=== PATIENT | male | born 1940 | race Caucasian/White ===

== ENCOUNTER → 2016-10-05 | Outpatient (CLI) | payer BC ==
[2016-10-05 12:42] LABS: ESTIMATED AVERAGE GLUCOSE 126 mg/dl; HA1C FLAG Normal (Normal)
[2016-10-05 12:44] LABS: BLOOD UREA NITROGEN 18 mg/dl (7-18); BUN/CREATININE RATIO 14.1 (10-20); CARBON DIOXIDE 29 mmol/L (21-32); CHLORIDE 105 mmol/L (98-107); GLUCOSE 107 mg/dl (70-99); POTASSIUM 3.9 mmol/L (3.5-5.1); SODIUM 140 mmol/L (136-145)
[2016-10-05 12:47] LABS: CHOLESTEROL 200 mg/dl (0-200); CHOLESTEROL/HDL RATIO 3.8; HDL CHOLESTEROL 53 mg/dl; TRIGLYCERIDES 107 mg/dl (0-150); VERY LOW DENSITY LIPOPROT CALC 21 mg/dl
== END | disposition home or self-care (01) ==
LOC: C.LABSPEC 11:55
PROVIDERS: ATTEND Internal Medicine
DX: E78.5 Hyperlipidemia, unspecified (principal); E11.9 Type 2 diabetes mellitus without complications

== ENCOUNTER → 2016-12-18 | Outpatient (CLI) | payer BC ==
[2016-12-18 13:22] LABS: BLOOD UREA NITROGEN 17 mg/dl (7-18); BUN/CREATININE RATIO 12.9 (10-20); CALCIUM 9.2 mg/dl (8.5-10.1); CARBON DIOXIDE 31 mmol/L (21-32); CHLORIDE 102 mmol/L (98-107); GLUCOSE 86 mg/dl (70-99); POTASSIUM 3.8 mmol/L (3.5-5.1); SODIUM 139 mmol/L (136-145)
[2016-12-18 13:25] LABS: CHOLESTEROL 201 mg/dl (0-200); CHOLESTEROL/HDL RATIO 3.7; HDL CHOLESTEROL 55 mg/dl; TRIGLYCERIDES 95 mg/dl (0-150); VERY LOW DENSITY LIPOPROT CALC 19 mg/dl
[2016-12-18 13:29] LABS: ESTIMATED AVERAGE GLUCOSE 128 mg/dl; HA1C FLAG Normal (Normal)
== END | disposition home or self-care (01) ==
LOC: C.LABSPEC 12:20
PROVIDERS: ATTEND Internal Medicine
DX: Z00.00 Encounter for general adult medical examination without abnormal findings (principal); E11.9 Type 2 diabetes mellitus without complications; E78.5 Hyperlipidemia, unspecified

== ENCOUNTER → 2016-12-31 | Outpatient (CLI) | payer BC | END | disposition home or self-care (01) | LOC: C.LABSPEC 12:36 | PROVIDERS: ATTEND Internal Medicine | DX: Z12.11 Encounter for screening for malignant neoplasm of colon (principal) ==

== ENCOUNTER → 2017-08-27 | Outpatient (CLI) | payer BC ==
[2017-08-27 13:52] LABS: HEMOGLOBIN A1C 6.2 % (4.5-5.6)
[2017-08-27 14:31] LABS: BLOOD UREA NITROGEN 20 mg/dl (7-18); CALCIUM 9.1 mg/dl (8.5-10.1); CARBON DIOXIDE 31 mmol/L (21-32); CHOLESTEROL 187 mg/dl (0-200); CREATININE 1.28 mg/dl (0.60-1.40); GLUCOSE 112 mg/dl (70-99); POTASSIUM 3.9 mmol/L (3.5-5.1); SODIUM 138 mmol/L (136-145)
[2017-08-27 14:34] LABS: LDL CHOLESTEROL (DIRECT) 130 mg/dl
== END | disposition home or self-care (01) ==
LOC: C.LABSPEC 12:36
PROVIDERS: ATTEND Internal Medicine
DX: E78.5 Hyperlipidemia, unspecified (principal); E11.9 Type 2 diabetes mellitus without complications

== ENCOUNTER → 2017-12-27 | Outpatient (CLI) | payer BC ==
[~2017-12-27] MED LIST: DXY100 PO; LPR25 PO
[2017-12-27 17:07] LABS: ALBUMIN 2.9 gm/dl (3.4-5.0); ALKALINE PHOSPHATASE 122 U/L (45-117); ALT/SGPT 307 U/L (12-78); AST/SGOT 50 U/L (15-37); BLOOD UREA NITROGEN 16 mg/dl (7-18); CALCIUM 9.1 mg/dl (8.5-10.1); CARBON DIOXIDE 27 mmol/L (21-32); CREATININE 1.14 mg/dl (0.60-1.40); GLUCOSE 148 mg/dl (70-99); POTASSIUM 4.5 mmol/L (3.5-5.1); SODIUM 136 mmol/L (136-145)
== END | disposition home or self-care (01) ==
LOC: C.LAB 16:00
PROVIDERS: ATTEND Family Medicine
DX: E87.1 Hypo-osmolality and hyponatremia (principal); R79.89 Other specified abnormal findings of blood chemistry

== ENCOUNTER → 2017-12-31 | Outpatient (CLI) | payer BC ==
[2017-12-31 18:23] LABS: ALBUMIN 3.2 gm/dl (3.4-5.0); TOTAL PROTEIN 7.3 gm/dl (6.4-8.2)
--- NOTE | 2018-01-09 11:41 | CODING QUERY MEDICAL NECESSITY ---
CQTREATMENT RENDERED WITHOUT A DIAGNOSIS To promote full compliance with coding requirements relating to patient care, physician participation is requested in all cases of medical biller coder uncertainty. Please assist us with providing a diagnosis/symptom for the test(s) below: A diagnosis/symptom was not documented on your Order. A valid diagnosis/symptom is required to bill all insurances. Please remember that we are unable to code a diagnosis of rule out, probable, possible, questionable, or suspected. Tests that require a diagnosis: DOS 12/31/17 LIVER PROFILE TESTING Provider Signature: Date: Thank you Kristi Eisenberg [employer] Once completed, please kindly fax back to [phone] For questions please call [phone]
== END | disposition home or self-care (01) ==
LOC: C.LABSPEC 17:26
PROVIDERS: ATTEND Internal Medicine
DX: R79.89 Other specified abnormal findings of blood chemistry (principal); R94.5 Abnormal results of liver function studies

== ENCOUNTER 2021-08-09 17:11 | Inpatient (IN) ==
--- NOTE | 2021-08-09 17:23 | Emergency Department Note ---
Impression & Plan Atrial fibrillation with rapid ventricular response, Symptomatic bradycardia ED Provider Note NAME: BRIGID KIRK AGE: 81 SEX: M : 1940 ARRIVES VIA: Walk-In INFORMANT: Patient, ED PROVIDER(S): Soy Castellanos MD Chief Complaint: Palpitations HPI: Patient presents due to concern for palpitations and states that he does wear an apple watch was notified and noted that his heart rate was elevated today. The patient does have a known history of A. fib and does follow with Dr. Olvera. Patient denies any chest pain shortness of breath nausea vomiting or diarrhea. Patient states that he does have a history of taking thyroid replacement hormone. Patient denies any alcohol tobacco or drug use. Patient states that he did take extra dose of his metoprolol and took 2 of his flecainide as this is what had Dr. Olvera recommended when he does have an increased heart rate. Patient denies any abdominal pain. Patient denies any leg swelling. ROS: See HPI for pertinent positives and negatives. A total of 10 systems were reviewed and otherwise negative. Past medical history: See below Surgical history: See below Social history: See below Physical Exam: GENERAL: NAD, wearing glasses, wearing a mask, non-toxic. EYE EXAM: Normal conjunctiva. PERRL, no anisocoria and EOM's grossly intact w/o pain. NECK: Supple, no nuchal rigidity, no adenopathy, non-tender. No signs of meningismus. LUNGS: Clear to auscultation. Normal chest wall mechanics. HEART: Tachycardic and regular, no MRG. ABDOMEN: Abdomen soft, non-tender, normo-active bowel sounds, no masses, no rebound or guarding. BACK: No CVA TTP. SKIN: No rashes and no bruising. UPPER EXTREMITIES: Upper extremities are grossly normal. LOWER EXTREMITIES: Grossly normal, no edema. NEURO EXAM: A&O x3, cranial nerves II-XII grossly intact, normal speech, moves all 4 extremities on command w/o issue. Differential diagnoses: Premature contractions, electrolyte abnormality, cardiac dysrhythmia, thyroid dysfunction, pulmonary embolism, infection, gastrointestinal, as well as other pathologies. Course: Patient was seen and evaluated the bedside. Full history physical exam was performed. EKG interpreted by me Gilbert orozco RVR, rate of 137, wide QRS, right axis deviation. Tachycardic and fairly regular with a wide complex, rate of 180, wide QRS, possible right axis. Post Cardizem A. fib, rate of 61, wide QRS, right axis deviation, no obvious ST changes. Imaging Studies: See Below Cardiac monitoring: An order was placed for continuous cardiac monitoring. The monitor shows a rate of 162 with regular rhythm. MDM: The patient did present due to concern for tachycardia. The patient was placed in a large resuscitation room and was evaluated and treated. The patient did have improvement with diltiazem and small amount of IV fluids. Patient had normal white count H&H and platelet count. The patient's kidney function with a creat of 1.45. Patient's LFTs unremarkable. TSH is normal. The patient was doing quite well. The patient did eventually develop some lightheadedness and was noted to be increasingly bradycardic to where he was showing decreasing responsiveness. The patient was awake but the patient was noted to be bradycardic and hypotensive. The patient was given 1 mg of atropine, IV fluids and a gram of calcium. The patient had virtually immediate improvement. The patient upon being increasingly responsive denies any chest pains or shortness of breath. I do believe that the patient will need to be continued to be monitored. I did offer to speak with the patient's family but he declined. Of note the patient's bradycardia may be multifactorial as the patient did take an extra dose of his metoprolol today and also took two of his flecainide's which he does not take regularly. The patient had been ordered 15 mg of Cardizem but a dummy order had populated in addition to my order - per nursing - and the patient had received 25 mg of Cardizem instead of my order of 15 mg. Nursing did report this to the charge nurse and an incident report was filed. The patient did not have his worsening hypotension and bradycardia until well after an hour after administration of the Cardizem. Critical Care: I have personally spent 55 minutes of critical care time in direct management of this patient. This includes bedside care, interpretation of diagnostic studies, and testing, discussion with consultants, patient, and family members, and other require inpatient management activities. This 55 minutes is in excess of all separately billable procedures. Past Med/Surg History Medical History (Updated 08/09/21 @ 22:16 by Soy Castellanos MD) Atrial fibrillation with RVR Atrial flutter with rapid ventricular response Atrial flutter, paroxysmal CHF (congestive heart failure) Coronary artery calcification Elevated troponin Lyme disease Mitral regurgitation Nocturnal hypoxemia NSTEMI (non-ST elevated myocardial infarction) Paroxysmal atrial fibrillation Pre-diabetes Surgical History History of cataract surgery History of hernia repair History of repair of rotator cuff Family History Brother Diabetes Kidney stones Mother Diabetes Hypertension Other Myocardial infarction Social History Smoking Status: Never smoker Age Started Using Tobacco: 20; Years Smoked: 5; Second Hand Exposure: No; Do You Dip or Chew Tobacco: No; Tobacco Cessation Education Requested by Patient: No Hx Alcohol Use: No Hx Substance Use: No Preferred Language: Zambian Communication Ability: Effective 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 Beliefs That Will Affect Care: None marital status: Current Living Situation: Alone current occupational status: retired Other Information That Helps Us Care for You: No Feels Safe at Home: Yes Safety Concerns: Feels Safe At This Time Assistive Devices: CPAP Assistive Devices Comment: CPAP at night Allergies Allergies Allergy/AdvReac Type Severity Reaction Status Date / Time No Known Allergies Allergy Verified 08/09/21 18:05 Home Meds Home Medications Medication Instructions Recorded Confirmed cinnamon bark 500 mg capsule 500 mg PO QAM 08/25/18 08/09/21 (Cinnamon) multivitamin (Multiple Vitamins) 1 tab PO DAILY 01/27/19 08/09/21 flecainide 150 mg tablet 300 mg PO ONCE PRN 08/09/21 08/09/21 Previous Rx's Medication Instructions Recorded metoprolol tartrate 25 mg tablet 25 mg PO BID #180 tab 02/04/19 apixaban 5 mg tablet 5 mg PO BID #180 tab 01/19/21 Results & Data (ED) Vital Signs Vital Signs - 24 hr 08/09/21 17:13 08/09/21 17:24 08/09/21 17:30 Temperature 36.9 C Temperature Source Temporal Artery Scan Pulse Rate 201 H 192 H 163 H Pulse Rate [Finger] Pulse Rate from SpO2 Sensor 192 H 163 H Respiratory Rate 22 19 23 Respiratory Effort / Characteristics Non-Labored Spontaneous Respiratory Depth Normal Blood Pressure 111/81 169/137 H Blood Pressure [Left Arm] Blood Pressure Mean 91 147 Blood Pressure Mean [Left Arm] Blood Pressure Position [Left Arm] Pulse Oximetry 98 100 99 Oxygen Delivery Method Room Air Oxygen Flow Rate Sepsis Recent Fever Within 48 Hours No Sepsis New/Unexplained Change in Mental Status N/A Sepsis Action Taken by Nursing No Action Required 08/09/21 17:44 08/09/21 17:45 08/09/21 17:52 Temperature Temperature Source Pulse Rate 150 H 153 H 55 L Pulse Rate [Finger] Pulse Rate from SpO2 Sensor 151 H 152 H 50 L Respiratory Rate 27 H 15 24 Respiratory Effort / Characteristics Respiratory Depth Blood Pressure 147/101 H 86/48 L Blood Pressure [Left Arm] Blood Pressure Mean 116 60 Blood Pressure Mean [Left Arm] Blood Pressure Position [Left Arm] Pulse Oximetry 98 99 96 Oxygen Delivery Method Oxygen Flow Rate Sepsis Recent Fever Within 48 Hours Sepsis New/Unexplained Change in Mental Status Sepsis Action Taken by Nursing 08/09/21 17:53 08/09/21 18:00 08/09/21 18:06 Temperature Temperature Source Pulse Rate 55 L 62 61 Pulse Rate [Finger] Pulse Rate from SpO2 Sensor 49 L 35 L 43 L Respiratory Rate 21 18 21 Respiratory Effort / Characteristics Respiratory Depth Blood Pressure 93/49 L 94/44 L 94/44 L Blood Pressure [Left Arm] Blood Pressure Mean 63 60 60 Blood Pressure Mean [Left Arm] Blood Pressure Position [Left Arm] Pulse Oximetry 94 94 94 Oxygen Delivery Method Room Air Oxygen Flow Rate 0 Sepsis Recent Fever Within 48 Hours Sepsis New/Unexplained Change in Mental Status Sepsis Action Taken by Nursing 08/09/21 18:15 08/09/21 18:16 08/09/21 18:30 Temperature Temperature Source Pulse Rate 54 L 57 L 58 L Pulse Rate [Finger] Pulse Rate from SpO2 Sensor 56 L 58 L 49 L Respiratory Rate 17 22 16 Respiratory Effort / Characteristics Respiratory Depth Blood Pressure 84/46 L 94/47 L Blood Pressure [Left Arm] Blood Pressure Mean 58 62 Blood Pressure Mean [Left Arm] Blood Pressure Position [Left Arm] Pulse Oximetry 100 98 97 Oxygen Delivery Method Oxygen Flow Rate Sepsis Recent Fever Within 48 Hours Sepsis New/Unexplained Change in Mental Status Sepsis Action Taken by Nursing 08/09/21 18:45 08/09/21 18:50 08/09/21 19:00 Temperature Temperature Source Pulse Rate 36 L 41 L 67 Pulse Rate [Finger] Pulse Rate from SpO2 Sensor 41 L Respiratory Rate 16 19 23 Respiratory Effort / Characteristics Respiratory Depth Blood Pressure 60/36 L 93/52 L 107/58 L Blood Pressure [Left Arm] Blood Pressure Mean 44 65 74 Blood Pressure Mean [Left Arm] Blood Pressure Position [Left Arm] Pulse Oximetry 97 Oxygen Delivery Method Oxygen Flow Rate Sepsis Recent Fever Within 48 Hours Sepsis New/Unexplained Change in Mental Status Sepsis Action Taken by Nursing 08/09/21 19:15 08/09/21 19:30 08/09/21 19:45 Temperature Temperature Source Pulse Rate Pulse Rate [Finger] 83 84 84 Pulse Rate from SpO2 Sensor Respiratory Rate 18 Respiratory Effort / Characteristics Respiratory Depth Blood Pressure Blood Pressure [Left Arm] 128/72 112/63 139/72 Blood Pressure Mean Blood Pressure Mean [Left Arm] 90 79 94 Blood Pressure Position [Left Arm] Sitting Pulse Oximetry 95 98 98 Oxygen Delivery Method Room Air Room Air Room Air Oxygen Flow Rate Sepsis Recent Fever Within 48 Hours Sepsis New/Unexplained Change in Mental Status Sepsis Action Taken by Nursing 08/09/21 20:00 Temperature Temperature Source Pulse Rate Pulse Rate [Finger] 80 Pulse Rate from SpO2 Sensor Respiratory Rate Respiratory Effort / Characteristics Respiratory Depth Blood Pressure Blood Pressure [Left Arm] 136/64 Blood Pressure Mean Blood Pressure Mean [Left Arm] 88 Blood Pressure Position [Left Arm] Pulse Oximetry 98 Oxygen Delivery Method Room Air Oxygen Flow Rate Sepsis Recent Fever Within 48 Hours Sepsis New/Unexplained Change in Mental Status Sepsis Action Taken by Custodial Medications Current Medication List: was personally reviewed by me Laboratory Data Attestation: I reviewed the patient's lab results. Result diagrams: 08/09/21 17:22 08/09/21 17:22 Lab Results 08/09/21 08/09/21 08/09/21 Range/Units 17:22 17:22 17:22 WBC 6.72 (4.8-10.8) K/uL RBC 4.75 (4.7-6.1) M/uL Hgb 14.5 (14.0-18.0) g/dL Hct 42.5 (42-52) % MCV 89.5 (80-100) fL MCH 30.5 (25-34) pg MCHC 34.1 (32-36) g/dL RDW Std Deviation 43.6 (36.4-46.3) fL RDW Coeff of Tae 13.3 (11.5-14.5) % Plt Count 265 (130-400) K/uL MPV 9.6 (7.4-10.4) fL Immature Gran % (Auto) 0.1 % Neut % (Auto) 46.6 % Lymph % (Auto) 42.7 % [place] % (Auto) 7.4 % Eos % (Auto) 2.8 % Baso % (Auto) 0.4 % Neut # (Auto) 3.12 (1.4-6.5) K/uL Lymph # (Auto) 2.87 (1.2-3.4) K/uL [place] # (Auto) 0.50 (0.11-0.59) K/uL Eos # (Auto) 0.19 (0-0.5) K/uL Baso # (Auto) 0.03 (0-0.2) K/uL Immature Gran # (Auto) 0.01 (0.00-0.02) K/uL Sodium 134 L (136-145) mmol/L Potassium 3.8 (3.5-5.1) mmol/L Chloride 99 (98-107) mmol/L Carbon Dioxide 25 (21-32) mmol/L Anion Gap 10 (3-11) BUN 21 (6-23) mg/dl Creatinine 1.45 H (0.6-1.4) mg/dl Est Cr Clr Drug Dosing Not Reportable Est GFR ( Amer) 52.0 ml/min Est GFR (Non-Af Amer) 44.8 ml/min BUN/Creatinine Ratio 14.5 (10-20) Glucose 161 H (70-99(Fasting)) mg/dl Calcium 9.3 (8.5-10.1) mg/dl Phosphorus 4.2 (2.5-4.9) mg/dl Magnesium 2.1 (1.7-2.4) mg/dl Total Bilirubin 0.7 (0.2-1.0) mg/dl AST 40 H (13-39) U/L ALT 43 (7-52) U/L Alkaline Phosphatase 55 (34-104) U/L Troponin I < 0.03 (0-0.04) ng/ml Total Protein 7.6 (6.0-8.3) gm/dl Albumin 4.6 (3.4-5.0) gm/dl Globulin 3.0 (2.5-4.0) gm/dl Albumin/Globulin Ratio 1.5 (0.9-2) TSH 1.898 (0.300-4.500) uIu/ml SARS-CoV-2, RNA, NAAT (NEGATIVE) 08/09/21 Range/Units 19:31 WBC (4.8-10.8) K/uL RBC (4.7-6.1) M/uL Hgb (14.0-18.0) g/dL Hct (42-52) % MCV (80-100) fL MCH (25-34) pg MCHC (32-36) g/dL RDW Std Deviation (36.4-46.3) fL RDW Coeff of Tae (11.5-14.5) % Plt Count (130-400) K/uL MPV (7.4-10.4) fL Immature Gran % (Auto) % Neut % (Auto) % Lymph % (Auto) % [place] % (Auto) % Eos % (Auto) % Baso % (Auto) % Neut # (Auto) (1.4-6.5) K/uL Lymph # (Auto) (1.2-3.4) K/uL [place] # (Auto) (0.11-0.59) K/uL Eos # (Auto) (0-0.5) K/uL Baso # (Auto) (0-0.2) K/uL Immature Gran # (Auto) (0.00-0.02) K/uL Sodium (136-145) mmol/L Potassium (3.5-5.1) mmol/L Chloride (98-107) mmol/L Carbon Dioxide (21-32) mmol/L Anion Gap (3-11) BUN (6-23) mg/dl Creatinine (0.6-1.4) mg/dl Est Cr Clr Drug Dosing Est GFR ( Amer) ml/min Est GFR (Non-Af Amer) ml/min BUN/Creatinine Ratio (10-20) Glucose (70-99(Fasting)) mg/dl Calcium (8.5-10.1) mg/dl Phosphorus (2.5-4.9) mg/dl Magnesium (1.7-2.4) mg/dl Total Bilirubin (0.2-1.0) mg/dl AST (13-39) U/L ALT (7-52) U/L Alkaline Phosphatase (34-104) U/L Troponin I (0-0.04) ng/ml Total Protein (6.0-8.3) gm/dl Albumin (3.4-5.0) gm/dl Globulin (2.5-4.0) gm/dl Albumin/Globulin Ratio (0.9-2) TSH (0.300-4.500) uIu/ml SARS-CoV-2, RNA, NAAT NEGATIVE (NEGATIVE) Administered Medications Discontinued Medications Adenosine (Adenosine Iv Soln 3 Mg/Ml 2 Ml Vial) 6 mg IV NOW STA Stop: 08/09/21 17:32 Last Admin: 08/09/21 18:56 Dose: Not Given Documented by: [id number] Atropine Sulfate (Atropine So4 1 Mg/Ml 1ml Vial) Confirm Administered Dose 1 mg .ROUTE .STK-MED ONE Stop: 08/09/21 18:49 Last Admin: 08/09/21 18:59 Dose: Not Given Documented by: [id number] Atropine Sulfate (Atropine Sulfate 0.1 Mg/Ml 10ml Syr) 1 mg IV NOW STA Stop: 08/09/21 18:50 Last Admin: 08/09/21 18:55 Dose: 1 mg Documented by: [id number] Diltiazem HCl (Diltiazem Hcl 5 Mg/Ml 5 Ml Vial) 15 mg IV NOW STA Stop: 08/09/21 17:38 Last Admin: 08/09/21 17:52 Dose: Not Given Documented by: [id number] Diltiazem HCl (Diltiazem Hcl 5 Mg/Ml 5 Ml Vial) Confirm Administered Dose 25 mg IV .STK-MED ONE Stop: 08/09/21 17:42 Last Admin: 08/09/21 17:42 Dose: 25 mg Documented by: [id number] Cosigned by: [id number] Sodium Chloride (Nss) 500 mls @ 999 mls/hr IV .Q31M STA Stop: 08/09/21 18:01 Last Infusion: 08/09/21 18:07 Dose: 0 mls/hr Documented by: [id number] Admin: 08/09/21 17:51 Dose: 999 mls/hr Documented by: [id number] Calcium Gluconate () 1,000 mg in 60 mls @ 240 mls/hr IV NOW STA Stop: 08/09/21 19:03 Last Infusion: 08/09/21 19:13 Dose: 0 mls/hr Documented by: [id number] Admin: 08/09/21 18:58 Dose: 240 mls/hr Documented by: [id number] Sodium Chloride (Nss 1000ml) 1,000 mls @ 999 mls/hr IV .Q1H1M ONE Stop: 08/09/21 19:49 Last Infusion: 08/09/21 19:57 Dose: 0 mls/hr Documented by: [id number] Admin: 08/09/21 18:56 Dose: 999 mls/hr Documented by: [id number] Potassium Chloride (Potassium Chloride Crtab 20 Meq Tabcr) 20 meq PO NOW STA Stop: 08/09/21 20:10 Last Admin: 08/09/21 20:19 Dose: 20 meq Documented by: [id number] Discharge Plan Visit Data Chief Complaint: Arrhythmia/Palpitations Stated Complaint: TACHYCARDIA, SOB ED Provider: Soy Castellanos Discharge Problem: Atrial fibrillation with rapid ventricular response, Symptomatic bradycardia Patient Disposition: Admitted As Inpatient Discharge Instructions Interventions: ED Discharge Assessment Last Done: 08/09/21 21:10
[2021-08-09] MEDS ORDERED: ADENOSINE IV SOLN 3 MG/ML 2 ML VIAL IV STA (17:31)
[2021-08-09] MEDS ORDERED: SODIUM CHLORIDE 0.9% 500 ML IV STA (17:31)
[2021-08-09] MEDS ORDERED: dilTIAZem HCl 5 MG/ML 5 ML VIAL IV STA (17:37)
[2021-08-09 17:41] LABS: Basophils # (auto) 0.03 K/uL (0-0.2); Basophils % (auto) 0.4 %; Eosinophils # (auto) 0.19 K/uL (0-0.5); Eosinophils % (auto) 2.8 %; Hematocrit (blood only) 42.5 % (42-52); Hemoglobin 14.5 g/dL (14.0-18.0); Immature Granulocytes # (auto) 0.01 K/uL (0.00-0.02); Immature Granulocytes % (auto) 0.1 %; Lymphocytes # (auto) 2.87 K/uL (1.2-3.4); Lymphocytes % (auto) 42.7 %; Mean Corpuscular Hemoglobin 30.5 pg (25-34); Mean Corpuscular Hgb Conc 34.1 g/dL (32-36); Mean Corpuscular Volume 89.5 fL (80-100); Mean Platelet Volume 9.6 fL (7.4-10.4); Monocytes % (auto) 7.4 %; Neutrophils # (auto) 3.12 K/uL (1.4-6.5); Neutrophils % (auto) 46.6 %; Platelet Count 265 K/uL (130-400); RDW Coefficient of Variation 13.3 % (11.5-14.5); RDW Standard Deviation 43.6 fL (36.4-46.3); Red Blood Count 4.75 M/uL (4.7-6.1); White Blood Count 6.72 K/uL (4.8-10.8)
[2021-08-09] MEDS ORDERED: dilTIAZem HCl 5 MG/ML 5 ML VIAL IV ONE (17:41)
[2021-08-09 18:12] LABS: Alanine Aminotransferase 43 U/L (7-52); Albumin Globulin Ratio 1.5 (0.9-2); Albumin Level 4.6 gm/dl (3.4-5.0); Alkaline Phosphatase 55 U/L (34-104); Anion Gap 10 (3-11); Aspartate Aminotransferase 40 U/L (13-39); BUN Creatinine Ratio 14.5 (10-20); Bilirubin,Total 0.7 mg/dl (0.2-1.0); Blood Urea Nitrogen 21 mg/dl (6-23); Calcium 9.3 mg/dl (8.5-10.1); Carbon Dioxide 25 mmol/L (21-32); Chloride 99 mmol/L (98-107); Est GFR (Non-African American) 44.8 ml/min; Glucose 161 mg/dl (70-99(Fasting)); Magnesium 2.1 mg/dl (1.7-2.4); Phosphorus 4.2 mg/dl (2.5-4.9); Potassium 3.8 mmol/L (3.5-5.1); Sodium 134 mmol/L (136-145); Total Protein 7.6 gm/dl (6.0-8.3)
[2021-08-09] MEDS ORDERED: ATROPINE SO4 1 MG/ML 1ML VIAL ONE (18:48)
[2021-08-09] MEDS ORDERED: CALCIUM GLUCONATE 1,000 MG/60 ML BAG IV STA (18:49)
[2021-08-09] MEDS ORDERED: SODIUM CHLORIDE 0.9% 1000ML 1,000 ML IV ONE (18:49)
[2021-08-09] MEDS ORDERED: ATROPINE SULFATE 0.1 MG/ML 10ML SYR IV STA (18:49)
[2021-08-09 19:19] LABS: Troponin I < 0.03 ng/ml (0-0.04)
--- NOTE | 2021-08-09 19:19 | History & Physical Report ---
Date of Service August 09, 2021 Assessment & Plan (1) Atrial fibrillation: Plan: -Admit to PCU. -Asymptomatic, Apple Watch indicated HR in 100-120s at home, he took his metoprolol and flecainide as he was told to by Dr. Olvera when he has increased HR, however this did not slow his rate. HR was recorded at 201 on presentation to ED, down to 150s before medication in ED. The reason he went into afibb in the first place is unclear, pt feels well and states he is adequately hydrated, and there are no indications of an underlying infection however his creatinine is increased, pt may be dehydrated or may have underlying UTI or prostatitis. He is without urinary sx, but a UA with reflex cx was ordered. Also bladder scanning pt to assess for retention that could have sent pt into afibb. -Will continue Eliquis, holding metoprolol for now as patient has received that prior to presentation, as well as Cardizem 25mg IV which brought his HR to 30s and SBP 80-90s -K+ was 3.4, will gently replete with 20 mEq KCl in setting of arrhythmia. -Last echo was in April 2021--> LV size and function normal, mild LVH, no diastolic dysfunction to indicate elevated LA pressure or CHF, LA mild elevated (3.1 cm), trace mitral regurg. Mild aortic root dilation. -Cardiology consulted, patient follows with Dr. Olvera, appreciate their recommendations. (2) Creatinine elevation: Plan: -Cr 1.45 today, Cr on labs from 07/27 was 1.15. -Patient states he is not dehydrated, without urinary symptoms. We will bladder scan patient, also get UA to assess for underlying UTI/prostatitis whihc may be cause of bump in Cr as well as cause of afibb. -Received 1500 cc NS IVF so far. Will hold off on additional fluids for now, encourage PO intake. -Repeat BMP in AM. (3) Elevated glucose: Plan: -Without a diagnosis of diabetes. -Will order BGMs ACHS to assess if there is a need for sliding scale insulin while inpatient. (4) Cardiomyopathy: Plan: -Per Dr. Olvera's note from 02/21/21, he previously had reduced LV systolic function.This returned to normal on an echocardiogram dated 02/2018. (5) Moderate obstructive sleep apnea: Plan: -Had previously been using a CPAP that has been recalled. Does not use one currently. Plan: -Admitted to PCU. -SCDs and Eliquis for DVT ppx. -Full Code. History of Present Illness Chief Complaint: arrhythmia Primary Care Provider: Rachid Morales MD Patient is an 81 y/o male with a PMH of paroxysmal afibb and JARON who presents today with concerns for increased HR. Patient wear an apple watch and noticed his HR was 106 at one point. He was not immediately concerned, continued with his routine of 90 minutes of yoga, however after he finished noticed his HR in the 120s. He monitors his HR via watch closely it seems, he states his HR rarely goes above 100 even with exercise. As instructed to do so by Dr. Olvera when his HR is elevatd, he took his metoprolol and flecainide without cessation of tachycardia. He did not notice palpitations at any point and says he felt otherwise fine, no fever/chills, fatigue, chest pain, SOB, cough, nausea, vomiting, abdominal pain, diarrhea, melena, hematochezia, dysuria or increased urinary frequency, but drove himself to the [facility] for further evaluation. During check in, his HR was recorded at 201, during ED evaluation it was recorded to be in the 150s. He was given 25 mg Cardizem, shortly after his HR dropped to 40-50s, BP from 17/101 to 80s/40s. He then receievd 1 mg atropine as well as calcium gluconate and a total of 1.5 L NS IVF. Hospitalist service was called for further evaluation and admission. At the time of my exam, pt has a HR in 80s, SBP in 140s. Allergies Allergy/AdvReac Type Severity Reaction Status Date / Time No Known Allergies Allergy Verified 08/09/21 18:05 Home Medications Medication Instructions Recorded Confirmed Type cinnamon bark 500 mg capsule 500 mg PO QAM 08/25/18 08/09/21 History (Cinnamon) multivitamin (Multiple Vitamins) 1 tab PO DAILY 01/27/19 08/09/21 History metoprolol tartrate 25 mg tablet 25 mg PO BID #180 tab 02/04/19 08/09/21 Rx apixaban 5 mg tablet 5 mg PO BID #180 tab 01/19/21 08/09/21 Rx flecainide 150 mg tablet 300 mg PO ONCE PRN 08/09/21 08/09/21 History Past Med/Surg History Medical History (Updated 08/09/21 @ 22:16 by Soy Castellanos MD) Atrial fibrillation with RVR Atrial flutter with rapid ventricular response Atrial flutter, paroxysmal CHF (congestive heart failure) Coronary artery calcification Elevated troponin Lyme disease Mitral regurgitation Nocturnal hypoxemia NSTEMI (non-ST elevated myocardial infarction) Paroxysmal atrial fibrillation Pre-diabetes Surgical History History of cataract surgery History of hernia repair History of repair of rotator cuff Family History Brother Diabetes Kidney stones Mother Diabetes Hypertension Other Myocardial infarction Social History Smoking Status: Never smoker Age Started Using Tobacco: 20; Years Smoked: 5; Second Hand Exposure: No; Hx Alcohol Use: No Hx Substance Use: No Preferred Language: Moroccan Communication Ability: Effective 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 Beliefs That Will Affect Care: None marital status: Current Living Situation: Alone current occupational status: retired How many Children do You have: 2 Feels Safe at Home: Yes Assistive Devices: None and CPAP Review of Systems Review of Systems: Review of systems: Constitutional: Developed chills during ED evakuation; previously states he's had no fever, sweats or chills Eyes: No diplopia, no worsening or blurred vision ENT: normal hearing, no trouble swallowing Respiratory: Complains of a dry mouth; No cough, sputum, dyspnea at rest or on exertion Cardiovascular: No chest pain, tightness or palpitations Abdomen: No pain, nausea, vomiting, diarrhea or constipation Musculoskeletal: No joint pain, calf pain, swelling Neurologic: No weakness, numbness/tingling, or balance problems Psychiatric: No anxiety or depression Skin: No rash or itch Physical Exam Physical Exam: General: awake, alert, no apparent distress Head: Normocephalic, atraumatic ENT: PERRL, EOMI, no pharyngeal exudate, mucous membranes moist Chest: Clear to auscultation, on room air, no adventitious breath sounds Cardiac: Regular rate and rhythm, no murmur, no JVD, normal peripheral pulses, good capillary refill Abdominal: NABS x 4 quadrants, soft, nontender to palpation, no rebound, guarding or tenderness Extremities: Normal inspection, no peripheral edema or erythema, calfs nontender to palpation Psych: Normal mood and affect Neuro: AAO x 3, strength intact bilaterally and rated 5/5, no motor deficits, speech is clear, no peripheral sensory deficits Skin: no rash or erythema Results & Data Results & Data ([facility]) Vital Signs (Past 12 Hours) Vital Signs Temp Pulse Resp BP Pulse Ox 08/09/21 19:00 67 23 107/58 L 08/09/21 18:50 41 L 19 93/52 L 08/09/21 18:45 36 L 16 60/36 L 97 08/09/21 18:30 58 L 16 94/47 L 97 08/09/21 18:16 57 L 22 84/46 L 98 08/09/21 18:15 54 L 17 100 08/09/21 18:06 61 21 94/44 L 94 08/09/21 18:00 62 18 94/44 L 94 08/09/21 17:53 55 L 21 93/49 L 94 08/09/21 17:52 55 L 24 86/48 L 96 08/09/21 17:45 153 H 15 99 08/09/21 17:44 150 H 27 H 147/101 H 98 08/09/21 17:30 163 H 23 169/137 H 99 08/09/21 17:24 192 H 19 100 08/09/21 17:13 36.9 C 201 H 22 111/81 98 Laboratory Results Abnormal lab results 08/09/21 Range/Units 17:22 Sodium 134 L (136-145) mmol/L Creatinine 1.45 H (0.6-1.4) mg/dl Glucose 161 H (70-99(Fasting)) mg/dl AST 40 H (13-39) U/L Code Status & VTE Plan Code Status Full Code. VTE Prophylaxis Plan VTE Prophylaxis will be ordered: Yes Supervising Physician Co-Signing Physician Notes Attending addendum: I have physically seen this patient, have supervised the BHAVANA's activities, and agree with the H&P unless as otherwise noted. Assessment and Plan: Atrial fibrillation with RVR- Patient developed bradycardia with hypotension after receiving dosages of IV Cardizem in the ED, proceeded by the patient taking his as needed flecainide and additional dose of metoprolol prior to coming to the ED Continue Eliquis Hold any further negative inotropes due to patient's borderline blood pressure this time Optimize potassium, which is 3.4 upon admission with oral replacement and IV replacement Consult cardiology Acute kidney injury- Creatinine 1.45 upon admission, with base 1.15 Dehydration may have contributed to tendency toward RVR above Received 1500 cc normal saline in the ED, and at this time appears to be relatively stable We will bolus IV fluids as needed to over night Recheck laboratories in a.m. Remaining orders and notations as noted PG Care Time/CCT Total # of Minutes Spent Total Time Spent with Patient: Total time spent is greater than 50% in coordination of care (as documented) at patient's floor/unit and/or counseling patient: Coding Level of Care Code 28513 Initial Inpt Care Lvl 2 Diagnoses Atrial fibrillation I48.91 Cardiomyopathy I42.9 Moderate obstructive sleep apnea G47.33 Creatinine elevation R79.89 Elevated glucose R73.09
[2021-08-09] MEDS ORDERED: POTASSIUM CHLORIDE CRTAB 20 MEQ TABCR PO STA (20:09)
[2021-08-09] MEDS ORDERED: ONDANSETRON INJ 2 MG/ML 2 ML VIAL IV PRN (21:59)
[2021-08-09] MEDS ORDERED: ACETAMINOPHEN 325 MG TAB PO PRN (21:59)
[2021-08-09] MEDS ORDERED: FLECAINIDE 150 MG PO PRN (21:59)
[2021-08-09] MEDS ORDERED: POLYETHYLENE (MIRALAX) 17 GM PACK PO PRN (21:59)
[2021-08-09] MEDS: APIXABAN 5 MG TABLET PO SCH (22:30)
[2021-08-09 23:29] LABS: Appearance Urine Clear (Clear); Bacteria Urine Automated Negative (Negative); Bilirubin Urine Negative (Negative); Blood Urine Negative (Negative); Color Urine Yellow; Glucose Urine UA Negative (Negative); Ketones Urine Trace (Negative); Leukocyte Esterase Urine Negative (Negative); Nitrite Urine Negative (Negative); Protein Urine 1+ (Negative); RBC Urine Automated 0-4 /hpf (0-4); Specific Gravity Urine 1.015 (1.000-1.030); Urobilinogen Urine Negative (Negative)
[2021-08-10 06:59] LABS: Basophils # (auto) 0.02 K/uL (0-0.2); Basophils % (auto) 0.4 %; Eosinophils # (auto) 0.11 K/uL (0-0.5); Eosinophils % (auto) 2.3 %; Hematocrit (blood only) 35.8 % (42-52); Hemoglobin 12.1 g/dL (14.0-18.0); Lymphocytes # (auto) 1.47 K/uL (1.2-3.4); Lymphocytes % (auto) 31.3 %; Mean Corpuscular Hgb Conc 33.8 g/dL (32-36); Mean Corpuscular Volume 88.8 fL (80-100); Mean Platelet Volume 8.9 fL (7.4-10.4); Monocytes % (auto) 8.5 %; Neutrophils # (auto) 2.69 K/uL (1.4-6.5); Neutrophils % (auto) 57.5 %; Platelet Count 200 K/uL (130-400); RDW Coefficient of Variation 13.4 % (11.5-14.5); RDW Standard Deviation 43.9 fL (36.4-46.3); Red Blood Count 4.03 M/uL (4.7-6.1); White Blood Count 4.69 K/uL (4.8-10.8)
[2021-08-10 07:31] LABS: BUN Creatinine Ratio 15.4 (10-20); Calcium 8.3 mg/dl (8.5-10.1); Creatinine Clr Calc Pharmacy 39.9 ml/min; Est GFR (African American) 67.4 ml/min; Est GFR (Non-African American) 58.1 ml/min
[2021-08-10] MEDS: APIXABAN 5 MG TABLET PO SCH (07:48)
[2021-08-10 10:45] LABS: Estimated Average Glucose 146 mg/dl; Hemoglobin A1C 6.7 % (4.5-5.6)
[2021-08-10] MEDS ORDERED: METOPROLOL TARTRATE 25 MG TAB PO SCH (12:00)
--- NOTE | 2021-08-10 14:08 | Discharge Summary ---
Date of Service date of admission - August 09, 2021 date of discharge - August 10, 2021 Admission HPI Per Admitting Provider Patient is an 81 y/o male with a PMH of paroxysmal afib and JARON who presents today with concerns for increased HR. Patient wear an apple watch and noticed his HR was 106 at one point. He was not immediately concerned, continued with his routine of 90 minutes of yoga, however after he finished noticed his HR in the 120s. He monitors his HR via watch closely it seems, he states his HR rarely goes above 100 even with exercise. As instructed to do so by Dr. Olvera when his HR is elevatd, he took his metoprolol and flecainide without cessation of tachycardia. He did not notice palpitations at any point and says he felt otherwise fine, no fever/chills, fatigue, chest pain, SOB, cough, nausea, vomiting, abdominal pain, diarrhea, melena, hematochezia, dysuria or increased urinary frequency, but drove himself to the [facility] for further evaluation. During check in, his HR was recorded at 201, during ED evaluation it was recorded to be in the 150s. He was given 25 mg Cardizem, shortly after his HR dropped to 40-50s. He then received 1 mg atropine as well as calcium gluconate and a total of 1.5 L NS IVF. Hospitalist service was called for further evaluation and admission. At the time of my exam, pt has a HR in 80s, SBP in 140s. Principal Diagnosis Paroxysmal Atrial Fibrillation Discharge Exam Gen - NAD, [place] Ne[place] - no JVD Heart - RRR, s1 s2, no murmur Lungs - CTA b/l Abd - soft NT ND BS+ Ext - no edema, pulses 2+ b/l Discharge Data Allergies Allergy/AdvReac Type Severity Reaction Status Date / Time No Known Allergies Allergy Verified 08/13/21 19:35 Consultations [facility] Cardiology - Ivan Olvera MD Hospital Course (1) Atrial fibrillation with rapid ventricular response: Shortly after ER presentation the patient converted back to NSR (~1800 on 08/09/21). He remained in NSR until his discharge on 08/10. He was continued on his metoprolol and Eliquis. On hospital day #2 he was seen by his primary tractor operator, Dr George Olvera. No changes were made in his usual medications. The patient will continue to monitor for PAF at home and take flecainide on a prn basis for episodes of PAF. Follow-up with Dr Olvera in 2 weeks post-discharge is already in place. (2) Paroxysmal atrial fibrillation: (3) Type 2 diabetes mellitus: HbA1C 6.7%. The patient will continue with lifestyle and dietary changes to control his DM. Total Time Total Time Spent Total Time Spent (In Minutes): 25 Discharge Plan Discharge Items Patient Disposition: Home - Self-Care Reason For Visit: Rapid Atrial Fibrillation Discharge Diagnosis: 1. rapid a.fib - resolved, converted back to normal sinus rhythm on 08/09/21 2. type 2 diabetes - hemoglobin a1c 6.7% Activity: Resume your previous activity Non-emergency contact: Primary Care Provider and Sharepoint Trainer Call non-emergency contact if: you have any medication questions and your symptoms worsen Follow-up/Referrals: Ivan Olvera MD [Physician] - 08/22/21 Rachid Morales MD [Primary Care Provider] - 08/16/21 9:45 am (see Dr Aris Bosch - 1 week) Diet: Carb Consistent or DM2 Addtl Attending Provider Instructions: Mr Allison, You presented to the hospital with rapid a.fib. In the emergency department you received several medications to slow the heart rate down. You actually converted to normal sinus rhythm shortly after, about 6pm on 08/09/21. You have remained in normal sinus rhythm since then. Dr Olvera, your tractor operator, saw you in consult. He does not recommend any new medications at this time. Please continue your metoprolol as previous twice daily. Use your flecainide as needed for episodes of a.fib. Please follow-up with Dr Olvera as scheduled on 08/22/21. We checked a hemoglobin a1c level for your diabetes and it was 6.7%. It does appear you have entered the early stage of full-blown diabetes. You can likely control this with diet and exercise. Please follow-up with Dr Morales for this issue. I would recommend you check your blood sugar once daily to get a sense of what your values are doing at home. Please vary the time in which you check it day-to-day (check it in the AM on 1 day, the next day do it at bedtime, the next day do it before dinner, and so forth). Follow-up - see separate section Return to [facility] if - * you have chest pain or shortness of breath * you have episodes of a.fib that will not "break" with your medications * you have dizziness or lightheadedness, especially if you are in a.fib * any other concerns It was our pleasure to care for you at [facility]! Dr Leone Pending Studies at Discharge: No Stand-Alone Forms: My [facility], Smoking Cessation Medications and DC Order Prescriptions: Continued metoprolol tartrate 25 mg tablet 25 mg PO BID Qty: 180 RF: 3 apixaban 5 mg tablet 5 mg PO BID Qty: 180 RF: 3 multivitamin [Multiple Vitamins] tablet 1 tab PO DAILY RF: 0 flecainide 150 mg tablet 150 mg PO ONCE PRN (Reason: afib) RF: 0 Discharge Orders: Discharge Order (Routine); Ordered 08/10/21 Ordered By: James Sams/Other Patient Handouts: A1C, Prediabetes, AFib Dc Admission Data Admit Date/Time: 08/09/21 20:09 Attending Provider: James Leone Admit Provider: Cornelio Guerra Primary Care Provider: Rachid Morales Other Providers: Ivan Olvera Other Interventions: Discharge Summary Assessment (RN) Last Done: 08/10/21 14:40 Coding Level of Care Code D/C DAY MANAGEMENT <30 MINS Diagnoses Atrial fibrillation with rapid ventricular response I48.91 Paroxysmal atrial fibrillation I48.0 Type 2 diabetes mellitus E11.9
--- NOTE | 2021-08-10 15:34 | Cardiology Consultation ---
Date of Consultation August 10, 2021 Assessment & Plan (1) Atrial fibrillation with rapid ventricular response: 1. Atrial fibrillation: He has some elevated ventricular rates at the time of admission. He had minimal symptoms. He feels that some of the dizziness he experience may have been more anxiety rather than a true symptom of his arrhythmia. He eventually converted to sinus. He did have an element stent of bradycardia and hypotension likely associated with aggressive efforts at rate control. His heart rate is normal. He is currently in sinus rhythm. He is otherwise feeling well. We did discuss additional options for treatment of his paroxysmal atrial fibrillation. He does appear to be having some more frequent episodes. We discussed the option of taking flecainide on a scheduled basis. However, he seems quite satisfied with his current treatment and wished to main yovany p.r.n. usage of extra metoprolol and flecainide. I think this is reasonable. He is scheduled to see me in 2 weeks and we can reassess the efficacy and need for change in treatment. He will continue his systemic anticoagulation. 2. Mitral regurgitation: Mild to moderate on last echocardiogram 3. cardiomyopathy: Resolved. History of Present Illness Reason for Consultation: Atrial fibrillation, bradycardia Requesting Physician: Emanuel Attending Physician: James Leone History of Present Illness the patient is an 81-year-old gentleman with a history of paroxysmal atrial fibrillation and previously reduced LV systolic function who experienced an episode of tachycardia yesterday. The patient monitors his heart rate quite closely. He states that recently, approximately once per week he will notice an elevated heart rate in the morning. He will perform some meditation, take his morning medications and many instances these higher heart rates resolved. Occasionally he will also take an extra metoprolol or a single dose of flecainide. Yesterday he was alerted to a high heart rate by his watch. He did undergo taking an extra metoprolol and a single dose of flecainide. However, he was able to continue his usual morning routine. He performs yoga and then had a hand massage. He did not report symptoms during this time. In the afternoon he noted that his heart rate was still high. His watch suggested his heart rate was over 200 beats per minute. At this point he felt somewhat dizzy and lightheaded in elected to proceed to the emergency room for evaluation. He had taken an extra dose of flecainide in the afternoon. In the emergency room he was administered diltiazem and started on an infusion. He converted to sinus rhythm in had a . Of bradycardia. He was administered fluids and atropine with reversal of his bradycardia and improvement in his symptoms. Since that time he has felt well. He has otherwise been performing his usual routine. He generally is not limited by dyspnea. He does not have significant exercise limitations. He has not had symptoms of chest pain or chest pressure. He is generally notified by his watch if he has elevated heart rates but is otherwise unaware of the palpitations. Allergies Allergy/AdvReac Type Severity Reaction Status Date / Time No Known Allergies Allergy Verified 08/09/21 18:05 Home Medications Medication Instructions Recorded Confirmed Type cinnamon bark 500 mg capsule 500 mg PO QAM 08/25/18 08/09/21 History (Cinnamon) multivitamin (Multiple Vitamins) 1 tab PO DAILY 01/27/19 08/09/21 History metoprolol tartrate 25 mg tablet 25 mg PO BID #180 tab 02/04/19 08/09/21 Rx apixaban 5 mg tablet 5 mg PO BID #180 tab 01/19/21 08/09/21 Rx flecainide 150 mg tablet 300 mg PO ONCE PRN 08/09/21 08/09/21 History Patient History Medical History (Updated 08/09/21 @ 22:16 by Soy Castellanos MD) Atrial fibrillation with RVR Atrial flutter with rapid ventricular response Atrial flutter, paroxysmal CHF (congestive heart failure) Coronary artery calcification Elevated troponin Lyme disease Mitral regurgitation Nocturnal hypoxemia NSTEMI (non-ST elevated myocardial infarction) Paroxysmal atrial fibrillation Pre-diabetes Surgical History History of cataract surgery History of hernia repair History of repair of rotator cuff Family History Brother Diabetes Kidney stones Mother Diabetes Hypertension Other Myocardial infarction Social History Smoking Status: Never smoker Age Started Using Tobacco: 20; Years Smoked: 5; Second Hand Exposure: No; Do You Dip or Chew Tobacco: No; Tobacco Cessation Education Requested by Patient: No Hx Alcohol Use: No Hx Substance Use: No Preferred Language: Colombian Communication Ability: Effective Machine Printer Required: No Beliefs That Will Affect Care: None marital status: Current Living Situation: Alone current occupational status: retired How many Children do You have: 2 Other Information That Helps Us Care for You: No Feels Safe at Home: Yes Safety Concerns: Feels Safe At This Time Assistive Devices: None and CPAP Assistive Devices Comment: CPAP at night Review of Systems Review of Systems: Per HPI Physical Exam Physical Exam: The patient is alert and oriented. Mood and affect appeared normal. He answered all questions appropriately. HEENT: Pupils are equal and reactive to light and accommodation. Extraocular movements are intact. The sclerae are anicteric. Neuro: Cranial nerves intact Neck: Patient's neck is supple. He has palpable carotid pulses bilaterally without bruits on auscultation. There is no evidence of jugular venous distention. The thyroid is not enlarged. Lungs: normal respiratory effort Cardiac: regular rhythm Pulses: The patient has palpable radial pulses bilaterally that are equal in intensity Extremities: There was no evidence of hypoperfusion. There is no cyanosis or clubbing. Skin: I did not appreciate any rashes on examination today. Results & Data ([facility]) Vital Signs (Past 12 Hours) Vital Signs Temp Pulse Pulse Resp BP Pulse Ox 08/10/21 14:40 36.4 C L 68 18 152/70 H 98 08/10/21 12:07 36.4 C L 68 18 152/70 H 98 08/10/21 08:18 36.7 C 87 20 161/70 H 96 08/10/21 08:00 72 Laboratory Results Abnormal Lab Results 08/09/21 08/09/21 08/09/21 17:22 17:22 17:22 WBC 6.72 RBC 4.75 Hgb 14.5 Hct 42.5 MCV 89.5 MCH 30.5 MCHC 34.1 RDW Std Deviation 43.6 RDW Coeff of Tae 13.3 Plt Count 265 MPV 9.6 Immature Gran % (Auto) 0.1 Neut % (Auto) 46.6 Lymph % (Auto) 42.7 [place] % (Auto) 7.4 Eos % (Auto) 2.8 Baso % (Auto) 0.4 Neut # (Auto) 3.12 Lymph # (Auto) 2.87 [place] # (Auto) 0.50 Eos # (Auto) 0.19 Baso # (Auto) 0.03 Immature Gran # (Auto) 0.01 Sodium 134 L Potassium 3.8 Chloride 99 Carbon Dioxide 25 Anion Gap 10 BUN 21 Creatinine 1.45 H Est Cr Clr Drug Dosing Not Reportable Est GFR ( Amer) 52.0 Est GFR (Non-Af Amer) 44.8 BUN/Creatinine Ratio 14.5 Glucose 161 H POC Glucose Estimat Average Glucose Hemoglobin A1c Calcium 9.3 Phosphorus 4.2 Magnesium 2.1 Total Bilirubin 0.7 AST 40 H ALT 43 Alkaline Phosphatase 55 Troponin I < 0.03 Total Protein 7.6 Albumin 4.6 Globulin 3.0 Albumin/Globulin Ratio 1.5 TSH 1.898 Urine Color Urine Appearance Urine pH Ur Specific [place] Urine Protein Urine Glucose (UA) Urine Ketones Urine Blood Urine Nitrite Urine Bilirubin Urine Urobilinogen Ur Leukocyte Esterase Urine WBC (Auto) Urine RBC (Auto) U Hyaline Cast (Auto) U Epithel Cells (Auto) Urine Bacteria (Auto) SARS-CoV-2, RNA, NAAT 08/09/21 08/09/21 08/09/21 19:31 22:32 23:15 WBC RBC Hgb Hct MCV MCH MCHC RDW Std Deviation RDW Coeff of Tae Plt Count MPV Immature Gran % (Auto) Neut % (Auto) Lymph % (Auto) [place] % (Auto) Eos % (Auto) Baso % (Auto) Neut # (Auto) Lymph # (Auto) [place] # (Auto) Eos # (Auto) Baso # (Auto) Immature Gran # (Auto) Sodium Potassium Chloride Carbon Dioxide Anion Gap BUN Creatinine Est Cr Clr Drug Dosing Est GFR ( Amer) Est GFR (Non-Af Amer) BUN/Creatinine Ratio Glucose POC Glucose 193 H Estimat Average Glucose Hemoglobin A1c Calcium Phosphorus Magnesium Total Bilirubin AST ALT Alkaline Phosphatase Troponin I Total Protein Albumin Globulin Albumin/Globulin Ratio TSH Urine Color Yellow Urine Appearance Clear Urine pH 6.0 Ur Specific [place] 1.015 Urine Protein 1+ H Urine Glucose (UA) Negative Urine Ketones Trace H Urine Blood Negative Urine Nitrite Negative Urine Bilirubin Negative Urine Urobilinogen Negative Ur Leukocyte Esterase Negative Urine WBC (Auto) 1-5 Urine RBC (Auto) 0-4 U Hyaline Cast (Auto) 1-5 U Epithel Cells (Auto) 10-20 H Urine Bacteria (Auto) Negative SARS-CoV-2, RNA, NAAT NEGATIVE 08/10/21 08/10/21 08/10/21 06:45 06:45 06:45 WBC 4.69 L RBC 4.03 L Hgb 12.1 L Hct 35.8 L MCV 88.8 MCH 30.0 MCHC 33.8 RDW Std Deviation 43.9 RDW Coeff of Tae 13.4 Plt Count 200 MPV 8.9 Immature Gran % (Auto) 0.0 Neut % (Auto) 57.5 Lymph % (Auto) 31.3 [place] % (Auto) 8.5 Eos % (Auto) 2.3 Baso % (Auto) 0.4 Neut # (Auto) 2.69 Lymph # (Auto) 1.47 [place] # (Auto) 0.40 Eos # (Auto) 0.11 Baso # (Auto) 0.02 Immature Gran # (Auto) 0.00 Sodium 136 Potassium 4.0 Chloride 105 Carbon Dioxide 25 Anion Gap 6 BUN 18 Creatinine 1.17 Est Cr Clr Drug Dosing 39.9 Est GFR ( Amer) 67.4 Est GFR (Non-Af Amer) 58.1 BUN/Creatinine Ratio 15.4 Glucose 122 H POC Glucose Estimat Average Glucose 146 Hemoglobin A1c 6.7 H Calcium 8.3 L Phosphorus Magnesium Total Bilirubin AST ALT Alkaline Phosphatase Troponin I Total Protein Albumin Globulin Albumin/Globulin Ratio TSH Urine Color Urine Appearance Urine pH Ur Specific [place] Urine Protein Urine Glucose (UA) Urine Ketones Urine Blood Urine Nitrite Urine Bilirubin Urine Urobilinogen Ur Leukocyte Esterase Urine WBC (Auto) Urine RBC (Auto) U Hyaline Cast (Auto) U Epithel Cells (Auto) Urine Bacteria (Auto) SARS-CoV-2, RNA, NAAT 08/10/21 08/10/21 07:02 11:18 WBC RBC Hgb Hct MCV MCH MCHC RDW Std Deviation RDW Coeff of Tae Plt Count MPV Immature Gran % (Auto) Neut % (Auto) Lymph % (Auto) [place] % (Auto) Eos % (Auto) Baso % (Auto) Neut # (Auto) Lymph # (Auto) [place] # (Auto) Eos # (Auto) Baso # (Auto) Immature Gran # (Auto) Sodium Potassium Chloride Carbon Dioxide Anion Gap BUN Creatinine Est Cr Clr Drug Dosing Est GFR ( Amer) Est GFR (Non-Af Amer) BUN/Creatinine Ratio Glucose POC Glucose 133 H 162 H Estimat Average Glucose Hemoglobin A1c Calcium Phosphorus Magnesium Total Bilirubin AST ALT Alkaline Phosphatase Troponin I Total Protein Albumin Globulin Albumin/Globulin Ratio TSH Urine Color Urine Appearance Urine pH Ur Specific [place] Urine Protein Urine Glucose (UA) Urine Ketones Urine Blood Urine Nitrite Urine Bilirubin Urine Urobilinogen Ur Leukocyte Esterase Urine WBC (Auto) Urine RBC (Auto) U Hyaline Cast (Auto) U Epithel Cells (Auto) Urine Bacteria (Auto) SARS-CoV-2, RNA, NAAT PG Care Time/CCT Total # of Minutes Spent Total Time Spent with Patient: Total time spent is greater than 50% in coordination of care (as documented) at patient's floor/unit and/or counseling patient: Coding Level of Care Code 65739 Office/OBS Consult Lvl 4 Diagnoses Atrial fibrillation with rapid ventricular response I48.91
--- NOTE | 2021-08-10 23:28 | Billing Data ---
Date of Service August 10, 2021 Coding Level of Care Code 09503 Initial Inpt Care Lvl 3
--- NOTE | 2021-08-11 05:28 | Electrocardiogram Report ---
Test Reason : Blood Pressure : / mmHG Vent. Rate : 137 BPM Atrial Rate : 147 BPM P-R Int : 148 ms QRS Dur : 144 ms QT Int : 350 ms P-R-T Axes : 084 095 -24 degrees QTc Int : 528 ms Atrial fibrillation with rapid ventricular response Right bundle branch block Abnormal ECG When compared with ECG of 16-APR-2021 15:27, Atrial fibrillation has replaced Sinus rhythm Right bundle branch block has replaced Incomplete right bundle branch block Confirmed by Reagan Valenzuela ([id number]) on 08/11/2021 5:28:14 AM Referred By: REFERRED SELF Confirmed By:Reagan Valenzuela
--- NOTE | 2021-08-11 05:29 | Electrocardiogram Report ---
Test Reason : Blood Pressure : / mmHG Vent. Rate : 061 BPM Atrial Rate : 017 BPM P-R Int : 000 ms QRS Dur : 128 ms QT Int : 390 ms P-R-T Axes : 000 095 020 degrees QTc Int : 392 ms Atrial fibrillation with a competing junctional pacemaker Right bundle branch block Abnormal ECG When compared with ECG of 09-AUG-2021 17:18, Vent. rate has decreased BY 76 BPM Confirmed by Reagan Valenzuela ([id number]) on 08/11/2021 5:29:15 AM Referred By: REFERRED SELF Confirmed By:Reagan Valenzuela
--- NOTE | 2021-08-11 05:31 | Electrocardiogram Report ---
Test Reason : Blood Pressure : / mmHG Vent. Rate : 080 BPM Atrial Rate : 078 BPM P-R Int : 000 ms QRS Dur : 162 ms QT Int : 446 ms P-R-T Axes : 000 089 016 degrees QTc Int : 514 ms Atrial fibrillation Right bundle branch block Abnormal ECG When compared with ECG of 09-AUG-2021 17:47, QRS duration has increased QT has lengthened Confirmed by Reagan Valenzuela ([id number]) on 08/11/2021 5:30:45 AM Referred By: REFERRED SELF Confirmed By:Reagan Valenzuela
== END 2021-08-10 15:30 | disposition home or self-care (01) | DRG 309 ==
LOC: ED 17:11 → SUATTDRO 20:09 → 2S 20:09